=== PATIENT | female | born 1940 | race Caucasian/White ===

== ENCOUNTER 2023-12-03 18:51 | Outpatient (CLI) | payer MEDICARE | END 2023-12-03 18:52 | disposition critical access hospital (66) | LOC: EMS 18:51 | DX: R07.1 Chest pain on breathing (principal); R06.02 Shortness of breath; R06.2 Wheezing; R68.83 Chills (without fever); R11.2 Nausea with vomiting, unspecified; R53.1 Weakness | CPT/HCPCS: A0425; A0427 ==

== ENCOUNTER 2023-12-03 19:20 | Emergency (ER) | payer MEDICARE ==
--- NOTE | 2023-12-03 19:40 | ED Physician Documentation ---
History of Present Illness - Stated complaint Stated Complaint: SOA/CHEST PX - Chief complaint Chief Complaint: Resp - Additonal information Additional information: 83-year-old female with history of hypertension, CHF on 40 mg p.o. Lasix daily, penicillin and sulfa allergy presents with shortness of breath and orthopnea. She felt mildly short of breath yesterday but worsened today. She has trouble laying flat. She denies fevers or chills. She has not without vomiting. She notes mild cough, nonbloody. No asymmetric leg swelling or pain. She feels mild intermittent chest tightness without focal pain, clarification. She tried 2 SL nitro but this did not help very much. No back or abdominal or flank pain. She is taking her medications consistently. She is not on oxygen at home, but presented on 2 L nasal cannula in the setting of dyspnea with EMS. EMS also gave 1 sublingual nitro and full aspirin, 4 mg Zofran. ROS Constitutional: no fever, no chills Eyes: no visual disturbance, no discharge Ears, Nose, Mouth, Throat: no rhinorrhea, no sore throat Cardiovascular: +chest pain, no palpitations Respiratory: +cough, shortness of breath Gastrointestinal: no abdominal pain, no vomiting, no diarrhea Genitourinary: no dysuria, no hematuria Musculoskeletal: no back pain, no neck stiffness Skin: no rash, no wound Neurological: no focal weakness, no focal numbness PD PAST MEDICAL HISTORY - Past Medical History Past Medical History: Yes Cardiovascular: Congestive heart failure, Hypertension - Allergies Allergies/Adverse Reactions: Allergies Allergy/AdvReac Type Severity Reaction Status Date / Time Penicillins Allergy Unknown Verified 12/03/23 19:30 Sulfa (Sulfonamide Allergy Unknown Verified 12/03/23 19:30 Antibiotics) - Social History Does the pt smoke?: No Smoking Status: Never smoker PD ED PE NORMAL - Free text exam Free text exam: Const: Dyspneic though nontoxic appearing; able to speak in moderate sentences, on 2 L nasal cannula satting mid 90s now, remaining calm and pleasant Eyes: PERRLA, EOMI ENT: mucous membranes moist Neck: supple, non-tender Resp: Tachypnea to low 20s, expiratory wheezing with moderate aeration bilaterally Card: regular rate and rhythm, no murmurs Abd: non tender diffusely, no rigidity or rebound or guarding Back: no T or L spine tenderness, no CVA tenderness bilaterally Extrem: no deformities, no swelling bilateral lower extremities 2+ distal pulses all extremities, Neuro: ANOx4, archeologist classical grossly intact, grossly intact sensation and strength all extremities Skin: no rash, warm and dry Results - Vitals Vitals: Vital Signs - 24 hr 12/03/23 12/03/23 12/03/23 19:25 19:29 19:31 Temperature 36.4 C L Heart Rate 87 71 Respiratory 28 H 17 Rate Blood Pressure 167/84 H 147/76 H O2 Saturation 82 L 96 96 If not protocol 2 3 : Oxygen Flow, liters/minute 12/03/23 12/03/23 12/03/23 19:59 20:29 20:30 Temperature Heart Rate 67 81 84 Respiratory 22 20 19 Rate Blood Pressure 169/65 H 172/63 H 172/87 H O2 Saturation 96 96 95 If not protocol 2 2 : Oxygen Flow, liters/minute 12/03/23 12/03/23 12/03/23 20:54 21:00 21:30 Temperature Heart Rate 72 76 79 Respiratory 19 23 35 H Rate Blood Pressure 147/56 H 125/81 H 159/63 H O2 Saturation 96 97 95 If not protocol 2 3 : Oxygen Flow, liters/minute 12/03/23 12/03/23 12/03/23 21:39 22:01 22:33 Temperature Heart Rate 79 71 75 Respiratory 24 19 21 Rate Blood Pressure 159/63 H 152/56 H 141/55 H O2 Saturation 97 95 96 If not protocol 2 2 2 : Oxygen Flow, liters/minute 12/03/23 12/03/23 12/04/23 23:00 23:30 00:00 Temperature 36.8 C Heart Rate 73 72 74 Respiratory 16 16 19 Rate Blood Pressure 139/57 H 147/76 H 140/60 H O2 Saturation 96 96 96 If not protocol 2 2 2 : Oxygen Flow, liters/minute Oxygen O2 Source Nasal cannula Oxygen Flow Rate 2 - EKG (time done) EKG NSR without acute ischemia or immediately concerning interval prolongation, in setting of RBBB. Please see my MDM. EKG releavant findings:: EKG personally interpreted by author of this note. Relevant findings are: Repeat EKG NSR without acute ischemia or immediately concerning interval prolongation, similar morphology to prior in ER. EKG releavant findings:: EKG personally interpreted by author of this note. Relevant findings are: - Labs Labs: Laboratory Tests 12/03/23 12/03/23 12/03/23 19:45 19:51 19:51 WBC 13.9 H RBC 3.35 L Hgb 10.4 L Hct 31.2 L MCV 93.1 MCH 31.0 MCHC 33.3 RDW 12.9 Plt Count 308 MPV 10.5 Neut # (Auto) 13.0 H Lymph # (Auto) 0.3 L Zie[place] # (Auto) 0.5 Eos # (Auto) 0.0 Baso # (Auto) 0.1 Absolute Nucleated RBC 0.00 Nucleated RBC % 0.0 APTT VBG pH VBG pCO2 VBG pO2 VBG HCO3 VBG Total CO2 VBG O2 Saturation VBG Base Excess Sodium 129 L Potassium 4.0 Chloride 96 L Carbon Dioxide 22 Anion Gap 11.0 BUN 25 H Creatinine 1.2 Estimated GFR (MDRD) 43 L Glucose 143 H Calcium 9.1 Total Bilirubin 0.5 AST 30 ALT 9 L Alkaline Phosphatase 80 Troponin I High Sens B-Natriuretic Peptide Total Protein 6.6 Albumin 3.7 Globulin 2.9 Albumin/Globulin Ratio 1.3 Procalcitonin Immunoas Nasal Adenovirus (PCR) NOT DETECTED Nasal B. parapertussis DNA (PCR) NOT DETECTED Nasal Coronavir 229E PCR NOT DETECTED Nasal Coronavir HKU1 PCR NOT DETECTED Nasal Coronavir NL63 PCR NOT DETECTED Nasal Coronavir OC43 PCR NOT DETECTED Nasal Enterovir/Rhinovir PCR NOT DETECTED Nasal Influenza B PCR NOT DETECTED Nasal Influenza A PCR NOT DETECTED Nasal Parainfluen 1 PCR NOT DETECTED Nasal Parainfluen 2 PCR NOT DETECTED Nasal Parainfluen 3 PCR NOT DETECTED Nasal Parainfluen 4 PCR NOT DETECTED Nasal RSV (PCR) NOT DETECTED Nasal B.pertussis DNA PCR NOT DETECTED Nasal C.pneumoniae (PCR) NOT DETECTED Jordon Human Metapneumo PCR NOT DETECTED Nasal M.pneumoniae (PCR) NOT DETECTED Nasal SARS-CoV-2 (PCR) NOT DETECTED 12/03/23 12/03/23 12/03/23 19:51 19:51 19:51 WBC RBC Hgb Hct MCV MCH MCHC RDW Plt Count MPV Neut # (Auto) Lymph # (Auto) Ziebach # (Auto) Eos # (Auto) Baso # (Auto) Absolute Nucleated RBC Nucleated RBC % APTT VBG pH 7.422 H VBG pCO2 33.8 L VBG pO2 101.9 H VBG HCO3 21.5 L VBG Total CO2 22.6 L VBG O2 Saturation 97.5 H VBG Base Excess -2.3 L Sodium Potassium Chloride Carbon Dioxide Anion Gap BUN Creatinine Estimated GFR (MDRD) Glucose Calcium Total Bilirubin AST ALT Alkaline Phosphatase Troponin I High Sens 4333.5 H* B-Natriuretic Peptide 1981 H Total Protein Albumin Globulin Albumin/Globulin Ratio Procalcitonin Immunoas Nasal Adenovirus (PCR) Nasal B. parapertussis DNA (PCR) Nasal Coronavir 229E PCR Nasal Coronavir HKU1 PCR Nasal Coronavir NL63 PCR Nasal Coronavir OC43 PCR Nasal Enterovir/Rhinovir PCR Nasal Influenza B PCR Nasal Influenza A PCR Nasal Parainfluen 1 PCR Nasal Parainfluen 2 PCR Nasal Parainfluen 3 PCR Nasal Parainfluen 4 PCR Nasal RSV (PCR) Nasal B.pertussis DNA PCR Nasal C.pneumoniae (PCR) Jordon Human Metapneumo PCR Nasal M.pneumoniae (PCR) Nasal SARS-CoV-2 (PCR) 12/03/23 12/03/23 12/03/23 19:51 19:51 21:30 WBC RBC Hgb Hct MCV MCH MCHC RDW Plt Count MPV Neut # (Auto) Lymph # (Auto) [place]iebach # (Auto) Eos # (Auto) Baso # (Auto) Absolute Nucleated RBC Nucleated RBC % APTT 29.1 VBG pH VBG pCO2 VBG pO2 VBG HCO3 VBG Total CO2 VBG O2 Saturation VBG Base Excess Sodium Potassium Chloride Carbon Dioxide Anion Gap BUN Creatinine Estimated GFR (MDRD) Glucose Calcium Total Bilirubin AST ALT Alkaline Phosphatase Troponin I High Sens 4667.4 H* B-Natriuretic Peptide Total Protein Albumin Globulin Albumin/Globulin Ratio Procalcitonin Immunoas 0.25 Nasal Adenovirus (PCR) Nasal B. parapertussis DNA (PCR) Nasal Coronavir 229E PCR Nasal Coronavir HKU1 PCR Nasal Coronavir NL63 PCR Nasal Coronavir OC43 PCR Nasal Enterovir/Rhinovir PCR Nasal Influenza B PCR Nasal Influenza A PCR Nasal Parainfluen 1 PCR Nasal Parainfluen 2 PCR Nasal Parainfluen 3 PCR Nasal Parainfluen 4 PCR Nasal RSV (PCR) Nasal B.pertussis DNA PCR Nasal C.pneumoniae (PCR) Jordon Human Metapneumo PCR Nasal M.pneumoniae (PCR) Nasal SARS-CoV-2 (PCR) - Rads (name of study) CXR Relevant Findings:: EMP independent interpretation of test, See rad report (Radiology agrees with my assessment of likely CHF, though cannot exclude interstitial infiltrates. Small bilateral effusions present), Other Procedures - General procedure General procedure: PROCEDURE: POCUS of lungs by myself Diffuse B-lines are present bilaterally on my assessment Patient tolerated procedure well PD Medical Decision Making - ED course ED course: This patients presentation is most suggestive of CHF exacerbation with cardiac wheezing, otherwise consider a broad differential including not limited to COPD, ACS, pneumothorax, symptomatic anemia, pulmonary embolism, among others. Clear exam findings and history as above are strongly suggestive of CHF. I am obtain EKG, CBC, CMP, VBG, BNP, troponin, viral swab, chest x-ray. I am giving nitro paste and closely reassessing. EKG normal sinus rhythm without acute ischemia or immediately concerning interv al prolongation. PVCs noted. Right bundle branch block present. No recent for comparison. Labs: CBC with leukocytosis to nearly 14 without recent for comparison, neutrophilic, anemia to 10.4 without clear clinical bleeding, no thrombocytopenia. VBG shows pH borderline elevated, without CO2 retention. Chemistry shows hyponatremia to 129 without recent for comparison, creatinine 1.2 with BUN 25, no LFT elevation, BNP elevated to nearly 2000. Ordering 40 mg IV Lasix and Ortega. Viral panel negative. CXR: Radiology agrees with my assessment of likely CHF, though cannot exclude interstitial infiltrates. Small bilateral effusions present. While I think pneumonia is somewhat less likely clinically, I am obtain blood cultures x 2 and initiating empiric community-acquired pneumonia antibiotics, specifically levofloxacin 750mg IV and doxycycline 100 mg p.o. in the setting of penicillin and sulfa allergies. I am paging hospitalist at roughly 8:30 PM to discuss admission. I spoke with Dr. Lopez, reviewing case on phone at 8:43PM; we are awaiting troponin, but if reassuring will admit here. Tropoinin: returned very elevated. Patient currently without chest pain or STEMI on EKG. I am requesting immediate repeat EKG and troponin. This is now concerning for ACS as possible cause of CHF exacerbation. I am ordering heparin gtt as well and requesting Cardiology consult for transfer. Repeat EKG remains NSR with PVCs, RBBB, no clear acute ischecmia. Morpholoy similar to prior today. Cardiology c/s: I spoke with Dr. Lr who reviewed case with me at 9:15PM and agrees with transfer, no other requests currently. 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 I updated Dr. Lopez at 9:20PM on phone. I spoke with transfer center as well at 9:40PM, reviewing case, as [facility] may be full. Repeat troponin: increasing, to 4667.4 from 4333.5. Pads on. Note patient remains chest pain free on reassessments. I have updated her as well as via phone her sister. Consented for ultimate transfer. Patient sleeping comfortably. I spoke at 10:33PM with Sy CARDENAS of , reviewing case on phone. She agrees with transfer. We are awaiting bed. I will add atorvastatin per our discussion. [facility] He [facility] to [facility]. We are awaiting bed. Patient consented for transfer. Patient transferring in stable condition, comfortable, with no new concerns, at about 12:25AM. CRITICAL CARE TIME: outside of procedures, I spent 85 minutes assessing, reassessing, resuscitating this patient, speaking with family consultants, and interpreting studies and documentation, in the setting of concern for ACS requiring heparin gtt and CHF exacerbation. Departure - Departure Disposition: 02 Transfer Acute Care Hosp Forms: PCP List Discharge Date/Time: 12/04/23 00:27
[2023-12-03 19:58] LABS: BASOPHILS # (AUTO) 0.1 10^3/uL (0.0-0.1); BASOPHILS % (AUTO) 0.4 %; HCT - HEMATOCRIT 31.2 % (37.0-47.0); HGB - HEMOGLOBIN 10.4 g/dL (12.0-16.0); LYMPHOCYTES # (AUTO) 0.3 10^3/uL (1.5-3.5); LYMPHOCYTES % (AUTO) 2.1 %; MEAN CORPUSCULAR HGB CONC 33.3 g/dL (32.0-36.0); MEAN CORPUSCULAR VOLUME 93.1 fL (81.0-99.0); MEAN PLATELET VOLUME 10.5 fL (7.9-10.8); MONOCYTES # (AUTO) 0.5 10^3/uL (0.0-1.0); MONOCYTES % (AUTO) 3.4 %; NEUTROPHILS % (AUTO) 93.8 %; PLT - PLATELET COUNT 308 10^3/uL (130-450); RED BLOOD COUNT 3.35 10^6/uL (4.20-5.40); RED CELL DISTRIBUTION WIDTH 12.9 % (12.0-15.0); WHITE BLOOD COUNT 13.9 x10^3/uL (4.8-10.8)
[2023-12-03 20:03] LABS: VBG BASE EXCESS -2.3 mmol/L (-2 - +2); VBG HCO3 21.5 mmol/L (23-28); VBG OXYGEN SATURATION 97.5 % (60-80); VBG PCO2 33.8 mmHg (41-51); VBG PH 7.422 (7.31-7.41); VBG PO2 101.9 mmHg (25-47); VBG TOTAL CO2 22.6 mmol/L (24-29)
[2023-12-03] MEDS: NITROGLYCERIN 2% PASTE TOP STA (20:07)
--- NOTE | 2023-12-03 20:15 | XRAY Report ---
PROCEDURE: Chest 1V INDICATIONS: SOB, chest tightness TECHNIQUE: One view of the chest was acquired. COMPARISON: None. FINDINGS: Surgical changes and devices: None. Lungs and pleura: There are small bilateral pleural effusion. No pneumothorax. Hazy airspace opaciti es are seen throughout bilateral lung vick suggestive of pulmonary edema. Pulmonary vascular conges tion is also seen. Mediastinum: Mediastinal contours appear normal. Heart size is enlarged. Bones and chest wall: No suspicious bony lesions. Overlying soft tissues appear unremarkable. IMPRESSION: Finding is concerning for CHF. Superimposed interstitial infiltrates cannot be excluded. Small bilate ral pleural effusion. No pneumothorax. Reviewed by: Nabil Mendenhall MD on 12/03/2023 8:13 PM PDT Approved by: Nabil Mendenhall MD on 12/03/2023 8:13 PM PDT Station ID: [id number]
[2023-12-03 20:18] LABS: ALBUMIN 3.7 g/dL (3.2-5.5); ALBUMIN/GLOBULIN RATIO 1.3 (1.0-2.2); BILIRUBIN,TOTAL 0.5 mg/dL (0.2-1.0); CALCIUM 9.1 mg/dL (8.5-10.3); CREATININE 1.2 mg/dL (0.6-1.3); TOTAL PROTEIN 6.6 g/dL (6.4-8.9)
[2023-12-03 20:43] LABS: B. PARAPERTUSSIS- RESP PCR PAN NOT DETECTED; B. PERTUSSIS- RESP PCR PANEL NOT DETECTED; C. PNEUMONIAE- RESP PCR PANEL NOT DETECTED; CORONAVIRUS 229E-RESP PCR NOT DETECTED; CORONAVIRUS HKU1-RESP PCR NOT DETECTED; CORONAVIRUS NL63-RESP PCR NOT DETECTED; CORONAVIRUS OC43-RESP PCR NOT DETECTED; HUMAN METAPNEUMOVIRUS NOT DETECTED; INFLUENZA A- RESP PCR PANEL NOT DETECTED; INFLUENZA B - RESP PCR PANEL NOT DETECTED; M. PNEUMONIAE- RESP PCR PANEL NOT DETECTED; PARAINFLUENZA VIRUS 1 NOT DETECTED; PARAINFLUENZA VIRUS 2 NOT DETECTED; PARAINFLUENZA VIRUS 3 NOT DETECTED; PARAINFLUENZA VIRUS 4 NOT DETECTED; RHINOVIRUS/ENTEROVIRUS NOT DETECTED; RSV- RESP PCR PANEL NOT DETECTED; SARS-CoV-2 -RESP PCR PANEL NOT DETECTED
[2023-12-03] MEDS ORDERED: SODIUM CHLORIDE FLUSH 0.9% 10 ML SYRINGE IVP PRN (20:53)
[2023-12-03] MEDS ORDERED: ACETAMINOPHEN 325 MG TABLET PO PRN (20:53)
[2023-12-03] MEDS ORDERED: ONDANSETRON 4 MG/2 ML VIAL IVP PRN (20:53)
[2023-12-03] MEDS ORDERED: hydrALAZINE INJ 20 MG/ML VIAL IVP PRN (21:02)
[2023-12-03] MEDS: FUROSEMIDE 40 MG/4 ML VIAL IVP STA (21:11)
[2023-12-03] MEDS: DOXYCYCLINE 100 MG TABLET PO STA (21:11)
[2023-12-03] MEDS: levoFLOXacin 750 MG/150 ML 750 MG/150 ML BAG IV ONE (21:11)
--- NOTE | 2023-12-03 21:34 | PROVIDER PROGRESS NOTE ---
[facility] Note - Van Helper Note [facility] Note: ED staff paged for admission on patient with SOB and hx of CHF. initial diagnosis for CHF exacerbation however troponin return significantly elevated 4K. patient having NSTEMI and per ED staff will transfer out. Admission cancelled. Stas Lopez DO Internal Medicine [facility] [place]
[2023-12-03] MEDS: HEPARIN 25000UNITS/500ML (D5W) 25,000 UNIT/500 ML BAG IV SCH (21:35)
[2023-12-03 22:42] VITALS: O2SAT 96
[2023-12-03] MEDS: HEPARIN 5,000 UNIT/ML VIAL SUBQ SCH (23:00)
[2023-12-03] MEDS: ATORVASTATIN 40 MG TABLET PO STA (23:03)
[2023-12-03] MEDS: SODIUM CHLORIDE FLUSH 0.9% 10 ML SYRINGE IVP SCH (23:05)
[2023-12-04 00:09] VITALS: BP 140/60
[2023-12-04] MEDS ORDERED: FUROSEMIDE 40 MG/4 ML VIAL IVP SCH (09:00)
== END 2023-12-04 00:27 | disposition short-term general hospital (02) ==
LOC: ED 19:20
DX: I24.9 Acute ischemic heart disease, unspecified (principal); I50.9 Heart failure, unspecified
CPT/HCPCS: 36415; 51702; 71045; 80053; 82803; 83880; 84145; 84484; 85025; 85730; 87040; 87633; 93005; 96365; 96366; 96375; 99291; 99292; A9270; 85027